=== PATIENT | female | born 1985 | race Caucasian/White ===

== ENCOUNTER 2017-10-20 03:55 | Inpatient (IN) | payer SELFPAY ==
[2017-10-20 04:25] VITALS: BMI 25.7
[2017-10-20] MEDS: Lactated Ringers 1,000 ML 50 ML IV (04:35)
[2017-10-20 04:56] LABS: Hematocrit 40.8 % (37-47); Hemoglobin 14.8 g/dl (12.0-15.0); Mean Corp Hgb Conc 36.3 g/gl (32-36); Mean Corpuscular Hgb 32.5 pg (27.0-32.0); Mean Corpuscular Volume 89.7 fL (81-99); Mean Platelet Vol. 10.2 fl (6.2-12.0); Platelet Count 178 K/mm3 (150-450); RBC Distribution Width CV 12.2 % (11.6-14.6); RBC Distribution Width SD 38.7 fl (35.1-43.9); Red Blood Count 4.55 M/mm3 (4.2-5.4); White Blood Count 8.4 K/mm3 (4.4-11.0)
[2017-10-20 04:59] LABS: Scan Indicated on CBC? Y/N NO
[2017-10-20 07:18] LABS: ALB/GLOB Ratio 0.7 RATIO (0.9-2.4); AST(SGOT) 39 U/L (15-37); Alanine Aminotransfer ALT/SGPT 33 U/L (13-56); Albumin, Serum 3.1 g/dL (3.2-5.0); Alkaline Phosphatase 116 U/L (45-117); Anion Gap 9 (5-15); BUN 10 mg/dL (7-18); Calcium,Total 8.8 mg/dL (8.5-10.1); Chloride 105 mmol/L (98-107); Creatinine, Serum 0.53 mg/dL (0.55-1.02); EST Glomerular Filtration Rate 144 mL/min (>60); Est Glom Filt Rate - Afr Amer 175 mL/min (>60); Estimated Creatinine Clearance 143.98 ml/min; Globulin 4.2 g/dL (2.2-4.2); Glucose 93 mg/dL (74-106); Potassium 3.6 mmol/L (3.5-5.1); Protein, Total 7.3 g/dL (6.4-8.2); Sodium Level 139 mmol/L (136-145); Uric Acid 3.4 mg/dL (2.6-6.0)
[2017-10-20 07:34] LABS: Protein, Urine (Random) < 6.0 mg/dL (<11.9); Protein:Creat Ratio 132 mg/g CRE (0-200)
[2017-10-20] MEDS: Ondansetron 4 MG/2 ML Vial IV (11:28)
[2017-10-20] MEDS: Oxytocin 30 units/NS 500 ml 30 UNITS/500 ML IV.SOLN 334 UNITS IV (12:47)
--- NOTE | 2017-10-20 13:03 | PCM.OB.VAG ---
- Problem List (1) Active labor at term Status: Acute Vaginal Delivery Maternal Presentation: Active Labor 39 weeks with regular painful contractions. Advanced cervical dilation. Amniotic Membrane Rupture Type: Artificial Rupture of Membrane time: 0830 Amniotic Fluid Description: Clear Final DAHIANA: 10/23/17 Final DAHIANA Source: [place] <20 weeks Gestational age: 39 Weeks and 4 Days Date of Procedure: 10/20/17 Pre-Operative Diagnosis: Labor Post-Operative Diagnosis: same Surgery/ Procedure Performed: Spontaneous Vaginal Delivery Type of Anesthesia: None Description of Procedure: Admitted at 6 cm dilated. After AROM she progressed over 4 hours to FD then pushed for less than 10 minutes to deliver a live female . There was an active luann at delivery. Delayed cord clamping was employed. Cord bloods were collected at delivery. Apgars were 9/10. The placenta delivered spontaneously intact with a centrally located 3VC. The uterus contracted well after delivery. A small posterior vaginal first degree tear was re[paired with a single interrupted suture of 2-0 Vicryl. Presentation: Vertex Placental Delivery Description: Spontaneous Placenta Disposition: [facility] Percentage of Placenta Abruption: 0 Cord Vessel Description: 3 Vessels Cord Entanglement: None Estimated Blood Loss: 300 A gender: Female (1 minute): 9 (5 minute): 10 Episiotomy Description: None Laceration: Midline, Vaginal Extension/lac, 1st degree Medications given after delivery: IV Pitocin Complications: None
--- NOTE | 2017-10-20 13:10 | DCINST_ITS ---
Discharge Diet: No Restrictions Discharge Activity: Return to Normal Activity, May Drive, May Shower Return to work on:: 12/18/17 May resume sexual activity in: 4-6 weeks Call your doctor if your incision/area has: Sudden Increased Bleeding, Increased Pain/ Swelling, Increased Redness, Foul Smelling Discharge Call your doctor if you observe: Fever of 101 or Higher, Inability to urinate, Inability to have a bowel movement, Using more than one pad per hour, Shortness of breath, Chest pain, Calf discomfort, Uncontrolled pain Cleanse incision/area with: Soap & Water Additional Instructions: If you experience any of the following, contact your healthcare provider. * Bleeding that soaks a pad every hour for 2 hours * Fever 100.4 or higher * Unrelieved incision or abdominal pain * Swelling, redness, discharge or bleeding from your incision or episiotomy site * Your incision begins to separate * Problems urinating (including inability to urinate or burning while urinating) . * Visual changes * Severe headache * Flu-like symptoms * Pain or redness in one of both of your breasts * Pain, warmth, tenderness or swelling in your legs, especially the calf area * Frequent nausea and vomiting * Symptoms of depression or anxiety If you experience any of the following, call 911 or go to the nearest Emergency Room. * Chest pain * Problems breathing * Seizure activity * Partial or complete paralysis of a body part, slurred speech, weakness or drooping of the face, or a sudden inability to walk or hold your balance Allergies/Adverse Reactions: Allergies No Known Allergies Allergy (Verified 02/28/14 08:30) Medications to take at Discharge Vits 1 tablet PO DAILY 02/28/14 Ibuprofen [Motrin] 800 mg PO TID PRN PRN #30 tab 10/20/17 The following prescriptions were given: Ibuprofen [Motrin] 800 mg PO TID PRN PRN #30 tab PRN Reason: pain or cramping Please Follow Up With: Ryan Fisher MD When: 6 weeks Primary Care Physician: Kishor Quinonez [Primary Care Provider] - Proposed Discharge Date: 10/22/17
[2017-10-20] MEDS: Oxytocin 30 units/NS 500 ml 30 UNITS/500 ML IV.SOLN 167 UNITS IV (13:17)
[2017-10-20] MEDS: 0.9% Saline Lock 10 ML Syringe IV (14:56)
[2017-10-20 21:00] VITALS: BP 120/69; PULSE 80; RESP 18; TEMP 37.4; O2SAT 99
[2017-10-20 23:50] VITALS: BP 117/63; PULSE 82; RESP 16; TEMP 36.9; O2SAT 99
[2017-10-21] MEDS: Ibuprofen 600 MG Tablet PO ×2 (02:21→09:51)
[2017-10-21 04:15] VITALS: BP 107/58; PULSE 75; RESP 18; TEMP 36.7; O2SAT 99
[2017-10-21 04:35] LABS: Hematocrit 36.3 % (37-47); Hemoglobin 12.6 g/dl (12.0-15.0); Mean Corp Hgb Conc 34.7 g/gl (32-36); Mean Corpuscular Volume 92.1 fL (81-99); Mean Platelet Vol. 10.2 fl (6.2-12.0); Platelet Count 144 K/mm3 (150-450); RBC Distribution Width CV 12.4 % (11.6-14.6); Red Blood Count 3.94 M/mm3 (4.2-5.4); Scan Indicated on CBC? Y/N NO; White Blood Count 12.2 K/mm3 (4.4-11.0)
[2017-10-21 07:45] VITALS: BP 112/68; PULSE 56; RESP 16; TEMP 36.8
[2017-10-21 11:50] VITALS: BP 108/69; PULSE 44; RESP 16; TEMP 36.7
--- NOTE | 2017-10-21 11:52 | PCM.PN.OB ---
Patient Problems: Active and Suspected Problems Active labor at term (Acute) Subjective: Patient without complaints. Breast-feeding going well. Wants to go home today if possible. - Physical Exam Vital Signs AF, VSS Temp Pulse Resp BP Pulse Ox 98.2 F 56 L 16 112/68 99 10/21/17 07:45 10/21/17 07:45 10/21/17 07:45 10/21/17 07:45 10/21/17 04:15 Oxygen Delivery Method Room Air Weight: 159 lb 13.362 oz Body Mass Index (BMI) 25.7 Intake and Output for Last 24 Hours 10/19/17 10/20/17 10/21/17 23:59 23:59 23:59 Intake Total 250 / 250 Output Total 1550 / 1550 Balance -1300 / -1300 Laboratory Tests Past 24 Hrs 10/21/17 04:25 WBC 12.2 H RBC 3.94 L Hgb 12.6 Hct 36.3 L MCV 92.1 MCH 32.0 MCHC 34.7 RDW 12.4 RDW Differential 42.0 Plt Count 144 L MPV 10.2 Fundus firm, minimal lochia. Assessment/Plan Active and Suspected Problems Active labor at term (Acute) Doing well. Will release to home with routine instructions. Follow-up in 6 weeks.
[2017-10-21] MEDS: Prenatal Vits Tablet 1 TABLET PO (12:03)
[2017-10-21 16:00] VITALS: BP 122/59; PULSE 49; RESP 16; TEMP 36.6
== END 2017-10-21 16:15 | disposition home or self-care (01) | DRG 775 ==
PROVIDERS: Obstetrics & Gynecology; Admitting Provider Obstetrics & Gynecology; Family Provider Family Medicine; PCP Family Medicine; Visit Provider Obstetrics & Gynecology
DX: O70.0 First degree perineal laceration during delivery (principal); Z3A.39 39 weeks gestation of pregnancy; Z37.0 Single live birth
CPT/HCPCS: 59050; 80053; 82570; 84156; 84550; 85027; 86850; 86900; 99218; J7120; A4216; G0378; J2405

== ENCOUNTER → 2018-03-22 15:25 | Outpatient (CLI) | payer SELFPAY ==
[2018-03-29 09:57] LABS: HPV Reflexed? NOT INDICATED
== END ==
PROVIDERS: Family Provider Family Medicine; PCP Family Medicine; Visit Provider Obstetrics & Gynecology
DX: Z12.4 Encounter for screening for malignant neoplasm of cervix (principal); Z12.72 Encounter for screening for malignant neoplasm of vagina
CPT/HCPCS: 88175; G0145

== ENCOUNTER → 2019-06-26 10:53 | Outpatient (CLI) | payer SELFPAY ==
--- NOTE | 2019-06-26 11:09 | MRI_ITS ---
STUDY: MRI LEFT ANKLE WITHOUT CONTRAST REASON FOR EXAM: Female, 33 years old. Ankle pain TECHNIQUE: Standardized fat and water weighted pulse sequences were obtained in all 3 orthogonal planes. COMPARISON: None. FINDINGS: Normal subcutis adipose space. Normal posterior tibialis tendon. Normal flexor digitorum longus tendon. Normal flexor hallucis longus tendon. Normal peroneus longus and brevis tendons. Normal tibialis anterior tendon. Normal extensor hallucis longus tendon. Normal extensor digitorum longus tendons. Normal Achilles tendon and teno-osseous insertion. Normal plantar fascia. Normal plantar calcaneal tubercles. Normal intrinsic muscles of the rearfoot. Normal distal tibiofibular syndesmotic ligamentous complex. Normal lateral ligamentous complex. Normal subtalar ligaments and sinus tarsi. Normal deltoid ligamentous complexes. Normal plantar calcaneonavicular (spring) ligament. Normal tibiotalar articulation. Normal talar dome. Normal subtalar articulations. Normal talonavicular articulation. Normal calcaneocuboid articulation. Normal navicular-cuneiform articulations. MRI/Lower Ext Joint Only (Routine) IMPRESSION: Normal MRI of the ankle and rearfoot. Electronically Signed: Warren Hernandez MD at 13:13 EDT Tel , Service support ,
== END ==
PROVIDERS: Family Provider Family Medicine; PCP Family Medicine
DX: S93.401A Sprain of unspecified ligament of right ankle, initial encounter (principal); X58.XXXA Exposure to other specified factors, initial encounter; Y93.9 Activity, unspecified; Y92.9 Unspecified place or not applicable; Y99.9 Unspecified external cause status
CPT/HCPCS: 73721

== ENCOUNTER → 2021-01-13 11:47 | Outpatient (CLI) | payer SELFPAY ==
[2021-01-13 14:41] LABS: Color, Urine Yellow (Yellow); Glucose, Dipstick Normal (Normal); Ketone-Dipstick 5 mg/dl (Negative); Leukocyte Esterase-Dipstick Negative /ul (Negative); Nitrite-Dipstick Negative (Negative); Occult Blood-Urine Negative /ul (Negative); Protein-Dipstick 30 mg/dl (Negative); Specific Gravity, Urine 1.025 (1.002-1.030); Urine Bilirubin Dipstick Negative (Negative); Urine Clarity Sl. Cloudy (Clear); Urine Urobilinogen Normal (Normal)
[2021-01-13 14:45] LABS: Absolute Neutrophil Count 8.6 X10^3/uL (2.0-7.7); Basophil# 0.03 X10^3/uL; Basophil% 0.3 % (0-1); Eosinophil# 0.06 X10^3/uL; Eosinophils% 0.6 % (0-5); Hematocrit 41.3 % (37-47); Hemoglobin 14.3 g/dL (12.0-15.0); Lymphocyte % 13.8 % (19-41); Mean Corp Hgb Conc 34.6 g/dL (32-36); Mean Corpuscular Hgb 30.4 pg (27.0-32.0); Mean Corpuscular Volume 87.9 fL (81-99); Mean Platelet Vol. 9.4 fl (6.2-12.0); Monocyte# 0.62 X10^3/uL; Monocyte% 5.7 % (0-10); NRBC Flagged by Analyzer 0 % (0-5); Platelet Count 275 K/mm3 (150-450); RBC Distribution Width CV 11.3 % (11.6-14.6); RBC Distribution Width SD 36.5 fl (35.1-43.9); White Blood Count 10.9 K/mm3 (4.4-11.0)
[2021-01-13 14:58] LABS: Thyroid Stim Hormone (TSH) 2.48 uIU/mL (0.358-3.74)
[2021-01-13 15:45] LABS: HIV - WCH Non-Reactive (Nonreactive); Hepatitis B Surface Antigen Non-Reactive (Nonreactive); Hepatitis C Antibody Non-Reactive (Nonreactive); Rubella IgG Reactive (Nonreactive); Syphilis Antibodies Non-reactive
[2021-01-18 04:06] LABS: Chlamydia By Nucleic Acid AMP Negative (Negative)
[2021-01-18 07:59] LABS: Gonococcus By Nucleic Acid AMP Negative (Negative)
[2021-01-18 13:01] LABS: HPV Reflexed? NOT INDICATED
== END ==
PROVIDERS: PCP Family Medicine; Visit Provider Obstetrics & Gynecology
DX: Z34.81 Encounter for supervision of other normal pregnancy, first trimester (principal); Z12.4 Encounter for screening for malignant neoplasm of cervix; Z11.3 Encounter for screening for infections with a predominantly sexual mode of transmission
CPT/HCPCS: 36415; 81002; 84443; 85025; 86703; 86762; 86780; 86803; 87340; 87491; 87591; 88175; G0145

== ENCOUNTER → 2021-04-16 11:16 | Outpatient (CLI) | payer SELFPAY ==
[2021-04-16 14:11] LABS: Hematocrit 37.9 % (37-47); Hemoglobin 13.2 g/dL (12.0-15.0); Mean Corp Hgb Conc 34.8 g/dL (32-36); Mean Corpuscular Hgb 31.2 pg (27.0-32.0); Mean Corpuscular Volume 89.6 fL (81-99); Mean Platelet Vol. 9.6 fl (6.2-12.0); Platelet Count 220 K/mm3 (150-450); RBC Distribution Width SD 38.9 fl (35.1-43.9); Red Blood Count 4.23 M/mm3 (4.2-5.4); White Blood Count 10.7 K/mm3 (4.4-11.0)
[2021-04-16 14:15] LABS: Glucose Challenge Gest 1H 50g 101 mg/dL (70-140)
== END ==
PROVIDERS: PCP Family Medicine; Visit Provider Obstetrics & Gynecology
DX: Z34.82 Encounter for supervision of other normal pregnancy, second trimester (principal)
CPT/HCPCS: 36415; 82950; 85027